=== PATIENT | male | born 1955 | race Caucasian/White ===

== ENCOUNTER 2019-06-15 12:29 | Outpatient (CLI) | payer MEDICARE, SELFPAY | END 2019-06-15 12:30 | disposition home or self-care (01) | LOC: CHSTREATRM 12:32 | PROVIDERS: PCP Internal Medicine; Visit Provider Internal Medicine Pulmonary Disease | DX: E88.01 Alpha-1-antitrypsin deficiency (principal) | CPT/HCPCS: 96365; J0256 ==

== ENCOUNTER 2019-06-22 12:20 | Outpatient (CLI) | payer MEDICARE, SELFPAY ==
--- NOTE | 2019-06-22 12:40 | PC.NURSE ---
Patient here to receive infusion of Aralast. IV site intiated, Patient tolerated well. Sitting up in chair resting. Provided with coffee and call light. Denies any further needs.
--- NOTE | 2019-06-22 14:10 | PC.NURSE ---
Pt. tolerated Infusion well. IV site discontinued. Dressing applied. Appt. made for 06-29-19 at 1230. Pt. denies any questions or concerns at discharge. Pt. left ambulatory.
== END 2019-06-22 12:21 | disposition home or self-care (01) ==
LOC: CHSTREATRM 12:22
PROVIDERS: PCP Internal Medicine; Visit Provider Internal Medicine Pulmonary Disease
DX: E88.01 Alpha-1-antitrypsin deficiency (principal)
CPT/HCPCS: 96365; J0256

== ENCOUNTER 2019-06-29 12:29 | Outpatient (CLI) | payer MEDICARE, SELFPAY | END 2019-06-29 12:30 | disposition home or self-care (01) | LOC: CHSTREATRM 12:30 | PROVIDERS: PCP Internal Medicine; Visit Provider Internal Medicine Pulmonary Disease | DX: E88.01 Alpha-1-antitrypsin deficiency (principal) | CPT/HCPCS: 96365; J0256 ==

== ENCOUNTER 2019-07-06 12:34 | Outpatient (CLI) | payer MEDICARE, SELFPAY ==
--- NOTE | 2019-07-06 12:50 | PC.NURSE ---
Patient here for infusion of Aralast. Patient tolerated IV start well. Sitting up in chair resting. Provided with cup of black coffee. Pt. denies any need at this time. Call light and belongings provided.
--- NOTE | 2019-07-06 14:10 | PC.NURSE ---
Patient tolerated infusion well. IV site discontinued. Dressing applied to site. Next appt. made for 07-13-19 at 1230pm. Pt. denies any questions or concerns at discharge. Pt. left ambulatory.
== END 2019-07-06 12:35 | disposition home or self-care (01) ==
PROVIDERS: PCP Internal Medicine; Visit Provider Internal Medicine Pulmonary Disease
DX: E88.01 Alpha-1-antitrypsin deficiency (principal)
CPT/HCPCS: 96365; J0256

== ENCOUNTER 2019-07-13 12:36 | Outpatient (CLI) | payer MEDICARE, SELFPAY | END 2019-07-13 12:37 | disposition home or self-care (01) | LOC: CHSTREATRM 12:39 | PROVIDERS: PCP Internal Medicine; Visit Provider Internal Medicine Pulmonary Disease | DX: E88.01 Alpha-1-antitrypsin deficiency (principal) | CPT/HCPCS: 96365; J0256 ==

== ENCOUNTER 2019-07-20 12:17 | Outpatient (CLI) | payer MEDICARE, SELFPAY ==
--- NOTE | 2019-07-20 12:50 | PC.NURSE ---
PT TO ROOM 202AMB PER SELF FOR WEEKLY ARALAST INFUSION. A&OX3. ORIENTED TO ROOM. CALL BAKER IN REACH. REMINDED TO CALL WITH NEEDS.
--- NOTE | 2019-07-20 13:51 | PC.NURSE ---
ARALAST INFUSED WITHOUT DIFFICULTY. PT TOLERATED WELL. SAFE EXIT FROM HOSPITAL.
== END 2019-07-20 12:18 | disposition home or self-care (01) ==
LOC: CHSTREATRM 12:19
PROVIDERS: PCP Internal Medicine; Visit Provider Internal Medicine Pulmonary Disease
DX: E88.01 Alpha-1-antitrypsin deficiency (principal)
CPT/HCPCS: 96365; J0256

== ENCOUNTER 2019-07-27 12:25 | Outpatient (CLI) | payer MEDICARE, SELFPAY | END 2019-07-27 12:26 | disposition home or self-care (01) | LOC: CHSTREATRM 12:27 | PROVIDERS: PCP Internal Medicine; Visit Provider Internal Medicine Pulmonary Disease | DX: E88.01 Alpha-1-antitrypsin deficiency (principal) | CPT/HCPCS: 96365; J0256 ==

== ENCOUNTER 2019-08-03 12:14 | Outpatient (CLI) | payer MEDICARE, SELFPAY ==
--- NOTE | 2019-08-03 13:34 | PC.NURSE ---
TOLERATED WEEKLY IV ARALAST INFUSION WELL. NO CONCERNS. SAFE EXIT OF HOSPITAL.
--- NOTE | 2019-08-03 13:36 | PC.NURSE ---
PATIENT TOLERATED WEEKLY IV ARALAST INFUSION WELL. NO CONCERNS VOICED. SAFE EXIT OF HOSPITAL.
== END 2019-08-03 12:15 | disposition home or self-care (01) ==
LOC: CHSTREATRM 12:16
PROVIDERS: PCP Internal Medicine; Visit Provider Internal Medicine Pulmonary Disease
DX: E88.01 Alpha-1-antitrypsin deficiency (principal)
CPT/HCPCS: 96365; J0256

== ENCOUNTER 2019-08-10 12:12 | Outpatient (CLI) | payer MEDICARE, SELFPAY | END 2019-08-10 12:13 | disposition home or self-care (01) | LOC: CHSTREATRM 12:15 | PROVIDERS: PCP Internal Medicine; Visit Provider Internal Medicine Pulmonary Disease | DX: E88.01 Alpha-1-antitrypsin deficiency (principal) | CPT/HCPCS: 96365; J0256 ==

== ENCOUNTER 2019-08-17 12:10 | Outpatient (CLI) | payer MEDICARE, SELFPAY ==
[2019-08-17 13:31] LABS: Prostate Specific Antigen < 0.1 ng/mL (< OR = 4.0)
--- NOTE | 2019-08-17 14:17 | PC.NURSE ---
Patient here for weekly Aralast infusion. No concerns voiced. Aralast infusion administered. Tolerated it well. Safe exit of hospital.
== END 2019-08-17 12:11 | disposition home or self-care (01) ==
PROVIDERS: PCP Internal Medicine; Visit Provider Internal Medicine Pulmonary Disease
DX: C61 Malignant neoplasm of prostate (principal); E88.01 Alpha-1-antitrypsin deficiency
CPT/HCPCS: 36415; 84153; 96365; J0256

== ENCOUNTER 2019-08-24 11:56 | Outpatient (CLI) | payer MEDICARE, SELFPAY | END 2019-08-24 11:57 | disposition home or self-care (01) | PROVIDERS: PCP Internal Medicine; Visit Provider Internal Medicine Pulmonary Disease | DX: E88.01 Alpha-1-antitrypsin deficiency (principal) | CPT/HCPCS: 96365; J0256 ==

== ENCOUNTER 2019-08-31 12:16 | Outpatient (CLI) | payer MEDICARE, SELFPAY ==
--- NOTE | 2019-08-31 13:39 | PC.NURSE ---
Here for weekly Aralast IV infusion. No concerns voiced. Aralast infusion administered. Tolerated well. Safe exit of hospital.
== END 2019-08-31 12:17 | disposition home or self-care (01) ==
PROVIDERS: PCP Internal Medicine; Visit Provider Internal Medicine Pulmonary Disease
DX: E88.01 Alpha-1-antitrypsin deficiency (principal)
CPT/HCPCS: 96365; J0256

== ENCOUNTER 2019-09-07 12:23 | Outpatient (CLI) | payer MEDICARE, SELFPAY ==
--- NOTE | 2019-09-07 13:52 | PC.NURSE ---
Pt discharged to home A&Ox3 without questions or concerns.
== END 2019-09-07 12:24 | disposition home or self-care (01) ==
LOC: CHSTREATRM 12:25
PROVIDERS: PCP Internal Medicine; Visit Provider Internal Medicine Pulmonary Disease
DX: E88.01 Alpha-1-antitrypsin deficiency (principal)
CPT/HCPCS: 96365; J0256

== ENCOUNTER 2019-09-14 12:15 | Outpatient (CLI) | payer MEDICARE, SELFPAY ==
--- NOTE | 2019-09-14 14:16 | PCAUD ---
Patient tolerated weekly Aralast infusion well. No concerns. Safe exit of hospital.
== END 2019-09-14 12:16 | disposition home or self-care (01) ==
LOC: CHSTREATRM 12:18
PROVIDERS: PCP Internal Medicine; Visit Provider Internal Medicine Pulmonary Disease
DX: E88.01 Alpha-1-antitrypsin deficiency (principal)
CPT/HCPCS: 96365; J0256

== ENCOUNTER 2019-09-21 12:22 | Outpatient (CLI) | payer MEDICARE, SELFPAY ==
--- NOTE | 2019-09-21 12:45 | PC.NURSE ---
Pt to room 228 amb per self. A&ox3. Has no questions or concerns. Oriented to room. Call hicks in reach.
--- NOTE | 2019-09-21 13:55 | PC.NURSE ---
Pt discharged to home per self, safely.
== END 2019-09-21 12:23 | disposition home or self-care (01) ==
LOC: CHSTREATRM 12:24
PROVIDERS: PCP Internal Medicine; Visit Provider Internal Medicine Pulmonary Disease
DX: E88.01 Alpha-1-antitrypsin deficiency (principal)
CPT/HCPCS: 96365; J0256

== ENCOUNTER 2019-09-28 12:17 | Outpatient (CLI) | payer MEDICARE, SELFPAY ==
--- NOTE | 2019-09-28 14:46 | PC.NURSE ---
PATIENT HERE FOR ARALAST INFUSION. NO CONCERNS VOICED. ARALAST INFUSION ADMINISTERED. TOLERATED WELL. SAFE EXIT OF HOSPITAL.
== END 2019-09-28 12:18 | disposition home or self-care (01) ==
LOC: CHSTREATRM 12:20
PROVIDERS: PCP Internal Medicine; Visit Provider Internal Medicine Pulmonary Disease
DX: E88.01 Alpha-1-antitrypsin deficiency (principal)
CPT/HCPCS: 96365; J0256

== ENCOUNTER 2019-12-08 07:12 | Outpatient (CLI) | payer MEDICARE, SELFPAY ==
[2019-12-08 08:35] LABS: Prostate Specific Antigen < 0.1 ng/mL (< OR = 4.0)
== END 2019-12-08 07:13 | disposition home or self-care (01) ==
PROVIDERS: PCP Internal Medicine
DX: C61 Malignant neoplasm of prostate (principal)
CPT/HCPCS: 36415; 84153

== ENCOUNTER 2020-02-22 08:34 | Outpatient (CLI) | payer MEDICARE, SELFPAY | END 2020-02-22 08:35 | disposition home or self-care (01) | PROVIDERS: PCP Internal Medicine; Visit Provider Internal Medicine Pulmonary Disease | DX: E88.01 Alpha-1-antitrypsin deficiency (principal) | CPT/HCPCS: 96365; J0256 ==

== ENCOUNTER 2020-02-29 08:34 | Outpatient (CLI) | payer MEDICARE, SELFPAY ==
[2020-02-29 08:50] VITALS: BP 128/70; PULSE 72; RESP 16; TEMP 36.4; O2SAT 98
--- NOTE | 2020-02-29 09:55 | PC.NURSE ---
Patient here for weekly Aralast IV infusion. No concerns voiced. Aralast infusion administered SEE JUL. Tolerated well. Safe exit of hospital. Will return next 829 for infusion.
== END 2020-02-29 08:35 | disposition home or self-care (01) ==
LOC: CHSTREATRM 08:37
PROVIDERS: PCP Internal Medicine; Visit Provider Internal Medicine Pulmonary Disease
DX: E88.01 Alpha-1-antitrypsin deficiency (principal)
CPT/HCPCS: 96365; J0256

== ENCOUNTER 2020-03-08 08:18 | Outpatient (CLI) | payer MEDICARE, SELFPAY | END 2020-03-08 08:19 | disposition home or self-care (01) | LOC: CHSTREATRM 08:21 | PROVIDERS: PCP Internal Medicine; Visit Provider Internal Medicine Pulmonary Disease | DX: E88.01 Alpha-1-antitrypsin deficiency (principal) | CPT/HCPCS: 96365; J0256 ==

== ENCOUNTER 2020-03-14 08:16 | Outpatient (CLI) | payer MEDICARE, SELFPAY ==
--- NOTE | 2020-03-14 09:40 | PC.NURSE ---
Patient here weekly IV Aralast infusion. No concerns voiced. Aralast IV infusion administered. Tolerated well. Safe exit of hospital. Be back next a.m. for weekly infusion.
== END 2020-03-14 08:17 | disposition home or self-care (01) ==
PROVIDERS: PCP Internal Medicine; Visit Provider Internal Medicine Pulmonary Disease
DX: E88.01 Alpha-1-antitrypsin deficiency (principal)
CPT/HCPCS: 96365; J0256

== ENCOUNTER 2020-03-21 08:37 | Outpatient (CLI) | payer MEDICARE, SELFPAY ==
--- NOTE | 2020-03-21 08:55 | PC.NURSE ---
Pt to room 202b amb per self. A&Ox3. Has no questions or concerns. Call hicks in reach, reminded to call with needs.
[2020-03-21 09:00] LABS: Basophils Absolute Auto 0.05 K/mm3 (0.00-0.10); Basophils Percent Auto 0.8 % (0.0-1.0); Eosinophils Absolute Auto 0.25 K/mm3 (0.02-0.50); Eosinophils Percent Auto 3.9 % (1.0-6.0); Hematocrit 39.6 % (40.0-54.0); Hemoglobin 12.2 g/dL (14.0-18.0); Immature Granulocyte Absolute 0.07 K/mm3 (0.00-0.00); Immature Granulocyte Percent A 1.1 % (0.0-0.0); Lymphocytes Absolute Auto 1.43 K/mm3 (1.10-4.50); Mean Corpuscular HGB Conc 30.8 g/dL (32.0-36.0); Mean Corpuscular Hemoglobin 29.6 pg (27.0-31.0); Mean Corpuscular Volume 96.1 fL (78.0-102.0); Mean Platelet Volume 8.7 fl (8.7-11.0); Monocytes Absolute Auto 0.55 K/mm3 (0.10-0.90); Monocytes Percent Auto 8.5 % (2.0-11.0); Neutrophils Absolute Auto 4.1 K/mm3 (1.7-7.2); Neutrophils Percent Auto 63.7 % (50.0-70.0); Platelet Count Result 376 K/mm3 (150-420); Red Blood Count 4.12 M/mm3 (4.70-6.10); Red Cell Distribution Width 13.4 % (11.6-14.4); White Blood Count 6.5 K/mm3 (4.8-10.8)
[2020-03-21 09:39] LABS: Alanine Aminotransferase 30 U/L (16-63); Albumin Level 3.7 g/dL (3.4-5.0); Alkaline Phosphatase 98 U/L (46-116); Anion Gap 8 mmol/L (8-16); Aspartate Amino Transferase 27 U/L (15-37); Bilirubin,Total 0.3 mg/dL (0.00-1.00); Blood Urea Nitrogen 30 mg/dL (7-18); Carbon Dioxide 29 mmol/L (21-32); Chloride 103 mmol/L (98-108); Estimated Glomerular Filt Rate 47; Glucose 174 mg/dL (70-99); Osmolality Calculated 300 mOsm/kg (285-295); Potassium 4.5 mmol/L (3.5-5.1); Sodium 140 mmol/L (136-145); Total Protein 6.8 g/dL (6.4-8.2)
--- NOTE | 2020-03-21 10:40 | PC.NURSE ---
Medication infused as ordered. Pt tolerated well. Pt discharged to home amb per self.
[2020-03-23 16:07] LABS: Tacrolimus Prograf 6.9 mcg/L
== END 2020-03-21 08:38 | disposition home or self-care (01) ==
LOC: CHSTREATRM 08:43
PROVIDERS: PCP Internal Medicine; Visit Provider Internal Medicine Pulmonary Disease
DX: Z48.24 Encounter for aftercare following lung transplant (principal); E88.01 Alpha-1-antitrypsin deficiency
CPT/HCPCS: 36415; 80053; 80197; 85025; 96365; 96366; J0256

== ENCOUNTER 2020-03-28 08:16 | Outpatient (CLI) | payer MEDICARE, SELFPAY ==
--- NOTE | 2020-03-28 09:53 | PC.NURSE ---
Patient tolerated weekly IV Aralast infusion. No concerns voiced. Safe exit of hospital. Will return next .
== END 2020-03-28 08:17 | disposition home or self-care (01) ==
LOC: CHSTREATRM 08:18
PROVIDERS: PCP Internal Medicine; Visit Provider Internal Medicine Pulmonary Disease
DX: E88.01 Alpha-1-antitrypsin deficiency (principal)
CPT/HCPCS: 96365; J0256

== ENCOUNTER 2020-04-04 11:06 | Outpatient (CLI) | payer MEDICARE, SELFPAY ==
[2020-04-05 06:44] LABS: SARS-CoV-2 RNA PCR Negative
== END 2020-04-04 11:07 | disposition home or self-care (01) ==
LOC: CHSLAB 11:07
PROVIDERS: PCP Internal Medicine; Visit Provider Internal Medicine
DX: Z20.828 Contact with and (suspected) exposure to other viral communicable diseases (principal)
CPT/HCPCS: 87635; C9803; U0003

== ENCOUNTER 2020-04-12 07:54 | Outpatient (CLI) | payer MEDICARE, SELFPAY ==
--- NOTE | 2020-04-12 10:22 | PC.NURSE ---
Patient here for weekly Aralast infusion. NO concerns voiced. Aralast infusion administered. Tolerated it well. Safe exit of hospital. Will return next Wednesday.
== END 2020-04-12 07:55 | disposition home or self-care (01) ==
PROVIDERS: PCP Internal Medicine; Visit Provider Internal Medicine Pulmonary Disease
DX: E88.01 Alpha-1-antitrypsin deficiency (principal)
CPT/HCPCS: 96365; J0256

== ENCOUNTER 2020-04-19 12:00 | Outpatient (CLI) | payer MEDICARE, SELFPAY ==
--- NOTE | 2020-04-19 12:30 | PC.NURSE ---
Pt to room 228 amb per self. A&Ox3. Has no questions or complaints. Oriented to room. Call hicks in reach. Reminded to call with needs.
--- NOTE | 2020-04-19 13:23 | PC.NURSE ---
Medication infused without difficulty. Pt tolerated well. Discharged to home amb per self.
== END 2020-04-19 12:01 | disposition home or self-care (01) ==
LOC: CHSLAB 12:03 → CHSTREATRM 12:08
PROVIDERS: PCP Internal Medicine; Visit Provider Internal Medicine Pulmonary Disease
DX: E88.01 Alpha-1-antitrypsin deficiency (principal)
CPT/HCPCS: 96365; J0256

== ENCOUNTER 2020-04-26 12:55 | Outpatient (CLI) | payer MEDICARE, SELFPAY ==
--- NOTE | 2020-04-26 14:23 | PC.NURSE ---
Patient here for weekly Aralast IV infusion. NO concerns voiced. Aralast infusion administered. Tolerated well. Safe exit of hospital. Will return next Wednesday.
== END 2020-04-26 12:56 | disposition home or self-care (01) ==
LOC: CHSTREATRM 12:57
PROVIDERS: PCP Internal Medicine; Visit Provider Internal Medicine Pulmonary Disease
DX: E88.01 Alpha-1-antitrypsin deficiency (principal)
CPT/HCPCS: 96365; J0256

== ENCOUNTER 2020-04-29 06:59 | Outpatient (CLI) | payer MEDICARE, SELFPAY ==
[2020-04-29 07:10] LABS: Hemoglobin 12.4 g/dL (14.0-18.0); Mean Corpuscular Volume 96.6 fL (78.0-102.0); Mean Platelet Volume 8.9 fl (8.7-11.0); Platelet Count Result 352 K/mm3 (150-420); Red Blood Count 4.14 M/mm3 (4.70-6.10); Red Cell Distribution Width 14.2 % (11.6-14.4); White Blood Count 10.3 K/mm3 (4.8-10.8)
[2020-04-29 07:29] LABS: Band Neutrophils Percent 0 % (0-6); Lymphocytes Absolute Manual 2.78 K/mm3 (1.1-4.5); Lymphocytes Percent Manual 27 % (18-44); Monocytes Absolute Manual 0.61 K/mm3 (0.1-0.90); Monocytes Percent Manual 6 % (3-9); Neutrophils Absolute Manual 6.28 K/mm3 (1.3-6.7); Neutrophils Percent Manual 61 % (46-73); Total Cells Counted 100
[2020-04-29 07:30] LABS: Basophils Percent Manual 0 % (0-1); Eosinophils Percent Manual 3 % (1-6); Metamyelocytes Percent 1 %; Myelocytes Percent 2 %; Platelet Estimate Adequate (Adequate)
[2020-04-29 07:57] LABS: Alanine Aminotransferase 28 U/L (16-63); Albumin Level 3.3 g/dL (3.4-5.0); Alkaline Phosphatase 109 U/L (46-116); Anion Gap 5 mmol/L (8-16); Aspartate Amino Transferase 13 U/L (15-37); Bilirubin,Total 0.3 mg/dL (0.00-1.00); Blood Urea Nitrogen 29 mg/dL (7-18); Carbon Dioxide 31 mmol/L (21-32); Chloride 105 mmol/L (98-108); Estimated Glomerular Filt Rate > 60; Glucose 115 mg/dL (70-99); Osmolality Calculated 298 mOsm/kg (285-295); Potassium 3.7 mmol/L (3.5-5.1); Sodium 141 mmol/L (136-145); Total Protein 6.1 g/dL (6.4-8.2)
[2020-05-02 11:05] LABS: Tacrolimus Prograf 5.2 mcg/L
== END 2020-04-29 07:00 | disposition home or self-care (01) ==
LOC: CHSLAB 07:01
PROVIDERS: PCP Internal Medicine; Visit Provider Internal Medicine Pulmonary Disease
DX: Z48.24 Encounter for aftercare following lung transplant (principal)
CPT/HCPCS: 36415; 80053; 80197; 85025

== ENCOUNTER 2020-05-03 14:45 | Outpatient (CLI) | payer MEDICARE, SELFPAY ==
--- NOTE | 2020-05-03 15:54 | PC.NURSE ---
Patient tolerated weekly IV Aralast Infusion well. No concerns. Safe exit of hospital. Will return next .
== END 2020-05-03 14:46 | disposition home or self-care (01) ==
LOC: CHSLAB 14:48 → CHSTREATRM 14:52
PROVIDERS: PCP Internal Medicine; Visit Provider Internal Medicine Pulmonary Disease
DX: E88.01 Alpha-1-antitrypsin deficiency (principal)
CPT/HCPCS: 96365; J0256

== ENCOUNTER 2020-05-06 09:27 | Outpatient (CLI) | payer MEDICARE, SELFPAY ==
[2020-05-06 09:38] LABS: Hematocrit 38.3 % (40.0-54.0); Hemoglobin 11.8 g/dL (14.0-18.0); Mean Corpuscular HGB Conc 30.8 g/dL (32.0-36.0); Mean Corpuscular Hemoglobin 29.9 pg (27.0-31.0); Mean Corpuscular Volume 97.2 fL (78.0-102.0); Mean Platelet Volume 8.6 fl (8.7-11.0); Platelet Count Result 244 K/mm3 (150-420); Red Blood Count 3.94 M/mm3 (4.70-6.10); Red Cell Distribution Width 14.5 % (11.6-14.4)
[2020-05-06 10:07] LABS: Band Neutrophils Percent 0 % (0-6); Eosinophils Absolute Manual 0.05 K/mm3 (0.02-0.5); Eosinophils Percent Manual 1 % (1-6); Lymphocytes Percent Manual 26 % (18-44); Monocytes Absolute Manual 0.65 K/mm3 (0.1-0.90); Monocytes Percent Manual 13 % (3-9); Neutrophils Percent Manual 60 % (46-73); Total Cells Counted 100
[2020-05-06 10:08] LABS: Platelet Estimate Adequate (Adequate)
[2020-05-06 10:49] LABS: Alanine Aminotransferase 36 U/L (16-63); Albumin Level 3.5 g/dL (3.4-5.0); Alkaline Phosphatase 103 U/L (46-116); Anion Gap 8 mmol/L (8-16); Aspartate Amino Transferase 21 U/L (15-37); Bilirubin,Total 0.3 mg/dL (0.00-1.00); Blood Urea Nitrogen 29 mg/dL (7-18); Carbon Dioxide 29 mmol/L (21-32); Chloride 102 mmol/L (98-108); Estimated Glomerular Filt Rate 38; Glucose 177 mg/dL (70-99); Osmolality Calculated 297 mOsm/kg (285-295); Potassium 4.5 mmol/L (3.5-5.1); Sodium 139 mmol/L (136-145); Total Protein 6.5 g/dL (6.4-8.2)
[2020-05-06 10:55] LABS: Prostate Specific Antigen < 0.1 ng/mL (< OR = 4.0)
== END 2020-05-06 09:28 | disposition home or self-care (01) ==
LOC: CHSLAB 09:30
PROVIDERS: PCP Internal Medicine
DX: C61 Malignant neoplasm of prostate (principal); Z48.24 Encounter for aftercare following lung transplant
CPT/HCPCS: 36415; 80053; 80197; 84153; 85025

== ENCOUNTER 2020-05-09 07:55 | Outpatient (CLI) | payer MEDICARE, SELFPAY ==
[2020-05-09 08:25] VITALS: BP 129/70; PULSE 68; RESP 14; TEMP 36.6; O2SAT 98
--- NOTE | 2020-05-09 09:23 | PC.NURSE ---
Tolerated weekly Aralast IV infusion well. NO concerns voiced. Safe exit of hospital. Will return next .
== END 2020-05-09 07:56 | disposition home or self-care (01) ==
LOC: CHSTREATRM 07:56
PROVIDERS: PCP Internal Medicine; Visit Provider Internal Medicine Pulmonary Disease
DX: E88.01 Alpha-1-antitrypsin deficiency (principal)
CPT/HCPCS: 96365; J0256

== ENCOUNTER 2020-05-16 12:55 | Outpatient (RCR) | payer MEDICARE, SELFPAY ==
[2020-04-23] MEDS: methylPREDNISolone SOD SUCC 500 MG in DEXTROSE 5% 100 ML 200 MG IVPB (16:37)
[2020-04-24] MEDS: methylPREDNISolone SOD SUCC 500 MG in DEXTROSE 5% 100 ML 200 MG IVPB (16:14)
--- NOTE | 2020-04-24 17:03 | PC.NURSE ---
Infusion completed. IV access flushed, IV removed. Pressure applied, pressure dressing applied. Instructed on iv site care. Patient stated understanding.
[2020-04-25] MEDS: methylPREDNISolone SOD SUCC 500 MG in DEXTROSE 5% 100 ML 200 MG IVPB (16:03)
--- NOTE | 2020-04-25 16:10 | PC.NURSE ---
#20 gauge IV started. IV fluids hung.
--- NOTE | 2020-04-25 16:32 | PC.NURSE ---
Infusion completed. IV removed. No bruising observed. Instructed on insertion site care. Patient tolerated well.
== END 2020-07-22 23:59 | disposition home or self-care (01) ==
LOC: CHSTREATRM 12:55
PROVIDERS: PCP Internal Medicine; Visit Provider Internal Medicine Pulmonary Disease
DX: T86.819 Unspecified complication of lung transplant (principal); Z94.2 Lung transplant status
CPT/HCPCS: 96365; J2930

== ENCOUNTER 2020-05-16 13:03 | Outpatient (CLI) | payer MEDICARE, SELFPAY ==
--- NOTE | 2020-05-16 13:51 | PC.NURSE ---
Patient here for weekly Aralast IV infusion. No concerns voiced. Aralast infusion administered. Will return next Wednesday.
== END 2020-05-16 13:04 | disposition home or self-care (01) ==
LOC: CHSTREATRM 13:06
PROVIDERS: PCP Internal Medicine; Visit Provider Internal Medicine Pulmonary Disease
DX: E88.01 Alpha-1-antitrypsin deficiency (principal)
CPT/HCPCS: 96365; J0256

== ENCOUNTER 2020-05-20 09:32 | Outpatient (CLI) | payer MEDICARE, SELFPAY ==
[2020-05-20 10:20] LABS: Basophils Absolute Auto 0.02 K/mm3 (0.00-0.10); Basophils Percent Auto 0.4 % (0.0-1.0); Eosinophils Absolute Auto 0.12 K/mm3 (0.02-0.50); Eosinophils Percent Auto 2.4 % (1.0-6.0); Hematocrit 36.8 % (40.0-54.0); Hemoglobin 11.7 g/dL (14.0-18.0); Immature Granulocyte Absolute 0.13 K/mm3 (0.00-0.00); Immature Granulocyte Percent A 2.6 % (0.0-0.0); Lymphocytes Absolute Auto 1.43 K/mm3 (1.10-4.50); Lymphocytes Percent Auto 28.6 % (18.0-42.0); Mean Corpuscular HGB Conc 31.8 g/dL (32.0-36.0); Mean Corpuscular Hemoglobin 30.4 pg (27.0-31.0); Mean Corpuscular Volume 95.6 fL (78.0-102.0); Mean Platelet Volume 8.9 fl (8.7-11.0); Monocytes Absolute Auto 0.54 K/mm3 (0.10-0.90); Monocytes Percent Auto 10.8 % (2.0-11.0); Neutrophils Absolute Auto 2.8 K/mm3 (1.7-7.2); Neutrophils Percent Auto 55.2 % (50.0-70.0); Platelet Count Result 314 K/mm3 (150-420); Red Blood Count 3.85 M/mm3 (4.70-6.10); Red Cell Distribution Width 14.2 % (11.6-14.4)
[2020-05-20 11:24] LABS: Alanine Aminotransferase 31 U/L (16-63); Albumin Level 3.6 g/dL (3.4-5.0); Alkaline Phosphatase 102 U/L (46-116); Anion Gap 7 mmol/L (8-16); Aspartate Amino Transferase 25 U/L (15-37); Bilirubin,Total 0.3 mg/dL (0.00-1.00); Blood Urea Nitrogen 27 mg/dL (7-18); Calcium 9.1 mg/dL (8.5-10.1); Carbon Dioxide 30 mmol/L (21-32); Chloride 103 mmol/L (98-108); Estimated Glomerular Filt Rate 51; Glucose 144 mg/dL (70-99); Osmolality Calculated 298 mOsm/kg (285-295); Potassium 4.2 mmol/L (3.5-5.1); Sodium 140 mmol/L (136-145); Total Protein 6.6 g/dL (6.4-8.2)
[2020-05-22 13:09] LABS: Tacrolimus Prograf 9.8 mcg/L
== END 2020-05-20 09:33 | disposition home or self-care (01) ==
LOC: CHSLAB 09:34
PROVIDERS: PCP Internal Medicine; Visit Provider Internal Medicine Pulmonary Disease
DX: Z48.24 Encounter for aftercare following lung transplant (principal)
CPT/HCPCS: 36415; 80053; 80197; 85025

== ENCOUNTER 2020-05-24 12:34 | Outpatient (CLI) | payer MEDICARE, SELFPAY ==
--- NOTE | 2020-05-24 12:47 | PC.NURSE ---
Here for outpatient infusion
--- NOTE | 2020-05-24 14:04 | PC.NURSE ---
LFA IV removed, catheter intact. Patient ambulated off of floor. Gait steady. Next appointment Wednesday0
== END 2020-05-24 12:35 | disposition home or self-care (01) ==
PROVIDERS: PCP Internal Medicine; Visit Provider Internal Medicine Pulmonary Disease
DX: E88.01 Alpha-1-antitrypsin deficiency (principal)
CPT/HCPCS: 96365; J0256

== ENCOUNTER 2020-06-11 09:03 | Outpatient (CLI) | payer MEDICARE, SELFPAY ==
[2020-06-11 09:17] VITALS: BP 128/71; PULSE 72; RESP 16; TEMP 36.4; O2SAT 97
--- NOTE | 2020-06-11 10:26 | PC.NURSE ---
Patient tolerated weekly Aralast IV infusion well. No concerns. Safe exit of hospital.
== END 2020-06-11 09:04 | disposition home or self-care (01) ==
LOC: CHSTREATRM 09:05
PROVIDERS: PCP Internal Medicine; Visit Provider Internal Medicine Pulmonary Disease
DX: E88.01 Alpha-1-antitrypsin deficiency (principal)
CPT/HCPCS: 96365; J0256

== ENCOUNTER 2020-06-18 08:35 | Outpatient (CLI) | payer MEDICARE, SELFPAY ==
--- NOTE | 2020-06-18 10:08 | PC.NURSE ---
Patient tolerated weekly Aralast IV infusion well. No concerns voiced. Will return next Wednesday. Safe exit of hospital.
== END 2020-06-18 08:36 | disposition home or self-care (01) ==
LOC: CHSTREATRM 08:38
PROVIDERS: PCP Internal Medicine; Visit Provider Internal Medicine Pulmonary Disease
DX: E88.01 Alpha-1-antitrypsin deficiency (principal)
CPT/HCPCS: 96365; J0256

== ENCOUNTER 2020-06-19 11:44 | Outpatient (CLI) | payer MEDICARE, SELFPAY ==
[2020-06-19 12:21] LABS: Basophils Absolute Auto 0.07 K/mm3 (0.00-0.10); Basophils Percent Auto 0.7 % (0.0-1.0); Eosinophils Absolute Auto 0.44 K/mm3 (0.02-0.50); Eosinophils Percent Auto 4.4 % (1.0-6.0); Hematocrit 38.4 % (40.0-54.0); Hemoglobin 12.3 g/dL (14.0-18.0); Immature Granulocyte Absolute 0.08 K/mm3 (0.00-0.00); Immature Granulocyte Percent A 0.8 % (0.0-0.0); Lymphocytes Absolute Auto 0.87 K/mm3 (1.10-4.50); Lymphocytes Percent Auto 8.7 % (18.0-42.0); Mean Corpuscular Hemoglobin 30.4 pg (27.0-31.0); Mean Platelet Volume 9.3 fl (8.7-11.0); Monocytes Absolute Auto 0.93 K/mm3 (0.10-0.90); Monocytes Percent Auto 9.3 % (2.0-11.0); Neutrophils Absolute Auto 7.6 K/mm3 (1.7-7.2); Neutrophils Percent Auto 76.1 % (50.0-70.0); Platelet Count Result 320 K/mm3 (150-420); Red Blood Count 4.04 M/mm3 (4.70-6.10); Red Cell Distribution Width 13.4 % (11.6-14.4)
[2020-06-19 12:47] LABS: Alanine Aminotransferase 34 U/L (16-63); Albumin Level 3.7 g/dL (3.4-5.0); Alkaline Phosphatase 106 U/L (46-116); Anion Gap 6 mmol/L (8-16); Aspartate Amino Transferase 19 U/L (15-37); Bilirubin,Total 0.4 mg/dL (0.00-1.00); Blood Urea Nitrogen 30 mg/dL (7-18); Calcium 9.9 mg/dL (8.5-10.1); Carbon Dioxide 33 mmol/L (21-32); Chloride 103 mmol/L (98-108); Estimated Glomerular Filt Rate 51; Glucose 140 mg/dL (70-99); Osmolality Calculated 302 mOsm/kg (285-295); Potassium 4.6 mmol/L (3.5-5.1); Sodium 142 mmol/L (136-145)
[2020-06-20 17:38] LABS: SARS-CoV-2 RNA PCR Positive
== END 2020-06-19 11:45 | disposition home or self-care (01) ==
LOC: CHSLAB 11:46
PROVIDERS: PCP Internal Medicine; Visit Provider Internal Medicine Pulmonary Disease
DX: U07.1 COVID-19 (principal); Z48.24 Encounter for aftercare following lung transplant
CPT/HCPCS: 36415; 80053; 80197; 85025; C9803; U0003; U0005

== ENCOUNTER 2020-06-26 16:01 | Outpatient (CLI) | payer MEDICARE, SELFPAY ==
[2020-06-28 18:20] LABS: SARS-CoV-2 RNA PCR Positive
== END 2020-06-26 16:02 | disposition home or self-care (01) ==
PROVIDERS: PCP Internal Medicine; Visit Provider Internal Medicine Pulmonary Disease
DX: Z01.812 Encounter for preprocedural laboratory examination (principal); U07.1 COVID-19
CPT/HCPCS: C9803; U0003; U0005

== ENCOUNTER 2020-06-28 08:10 | Outpatient (CLI) | payer MEDICARE, SELFPAY ==
--- NOTE | 2020-06-28 09:30 | PC.NURSE ---
tolerated aralast well, saline lock removed, discharged ambulatroy to home
== END 2020-06-28 08:11 | disposition home or self-care (01) ==
LOC: CHSTREATRM 08:13
PROVIDERS: PCP Internal Medicine; Visit Provider Internal Medicine Pulmonary Disease
DX: E88.01 Alpha-1-antitrypsin deficiency (principal)
CPT/HCPCS: 96365; J0256